=== PATIENT | male | born 1960 | race Caucasian/White ===

== ENCOUNTER 2022-03-17 21:42 | Emergency (ER) | payer OTHER ==
--- OUTSIDE RECORDS SUMMARY | 2022-03-17 21:45 | XMS REPORT | Continuity of Care Document ---
:[address] [facility] t Address [address] [place] [address] Care Team Providers Name Role Phone Kevin Sanders Jr. Primary Care Physician [phone] LESLIE WHITTINGTON Attending Clinician Unavailable PEGGY MADDEN Attending Clinician Unavailable JOCELINE MORATAYA Attending Clinician Unavailable LESLIE WHITTINGTON Attending Clinician Unavailable ROYER SELLERS Attending Clinician Unavailable LARS NAPOLES Attending Clinician Unavailable JONI GALEAS Attending Clinician Unavailable NIMESH GRAYSON Attending Clinician Unavailable LESLIE WHITTINGTON Admitting Clinician Unavailable LESLYE MELCHOR Admitting Clinician Unavailable Payers Payer Name Policy Type Policy Number Effective Date Expiration Date S bella [facility] [id number] 2021 00:00:00 CHOICE/CHOICE PLUS Problems Condition Condition Condition Status Onset Resolution Last Treating Co mments Source Name Details Category Date Date Treatment Clinician Date Malignant Malignant Disease Active [facility] neoplasm neoplasm 12-14 Health of brain of brain 00:00: 00 Seizure Seizure Disease Active [facility] disorder disorder 12-14 Health 00:00: 00 No known No known Disease [place] active active Health problems problems Allergies, Adverse Reactions, Alerts This patient has no known allergies or adverse reactions. Social History Social Habit Start Date Stop Date Quantity Comments Source History of tobacco Snuff User [facility] use Exposure to 2022-02-26 2022-03-08 Not sure [facility] SARS-CoV-2 (event) 00:00:00 08:59:00 Alcohol intake 2022-01-25 2022-01-25 Ex-drinker [facility] 00:00:00 00:00:00 (finding) Tobacco use and 2022-01-04 2022-01-04 User of smokeless [facility] exposure 00:00:00 00:00:00 tobacco Tobacco Comment 2022-01-04 2022-01-04 Started as a teen [facility] 00:00:00 00:00:00 Alcohol Comment 2022-01-04 2022-01-04 Will drink a glass [facility] 00:00:00 00:00:00 a wine i. Business situations, 2 times a Sex Assigned At [birth year] M [facility] 00:00:00 00:00:00 Smoking Status Start Date Stop Date Source Never smoked tobacco [facility] Medications Ordered Filled Start Stop Current Ordering Indication Dosage Frequency Signature Comments Components Source Medication Medication Date Date Medication? Clinician (SIG) Name Name dexamethaso 2021-03- Yes [id number] 4mg Q.5D Take 1 SD ne 05-09 tablet (4 Health (Decadron) 00:00: 05:59 mg total) 4 MG tablet 00 :00 by mouth in the morning and 1 tablet (4 mg total) in the evening. granisetron 2021-03- No [id number] 1{patch Place 1 UT (Sancuso) 05-09 } patch on Healt h 3.1 MG/24HR 00:00: 05:59 the skin 1 00 :00 (one) time for 1 dose. temozolomid 2021-03- No [id number] 280mg QD Take 2 UT e (Temodar) 05-01-14 capsules Hea lth 140 MG 00:00: 05:59 (280 mg chemo 00 :00 total) by capsule mouth 1 (one) time each day for 5 days. Total Dosage is 295mg on days 1 to 5 out of a 28 day cycle lacosamide 2021-03 Yes [id number] 100mg Q.5D Take 1 UT (Vimpat) 1-14 tablet Health 100 MG 00:00: (100 mg tablet 00 total) by mouth in the morning and 1 tablet (100 mg total) in the evening. clobetasol 2021-03 Yes [id number] Q.5D Apply U T (Olux) 0.05 0-27 topically Hea lth % topical 00:00: 2 (two) foam 00 times a day. clobetasol 2021-03 Yes [id number] Q.5D Apply U T (Olux) 0.05 0-27 topically Hea lth % topical 00:00: 2 (two) foam 00 times a day. dexamethaso 2021-03- No [id number] 4mg Q.5D Take 1 UT ne 0-10 12-13 tablet (4 Health (Decadron) 00:00: 00:00 mg total) 4 MG tablet 00 :00 by mouth in the morning and 1 tablet (4 mg total) in the evening. dexamethaso 2021-03- Yes [id number] 4mg Q.5D Take 1 UT ne 0-10 11-10 tablet (4 Health (Decadron) 00:00: 05:59 mg total) 4 MG tablet 00 :00 by mouth in the morning and 1 tablet (4 mg total) in the evening. dexamethaso 2021-03- Yes [id number] 4mg Q.5D Take 1 UT ne 0-10 11-10 tablet (4 Health (Decadron) 00:00: 05:59 mg total) 4 MG tablet 00 :00 by mouth in the morning and 1 tablet (4 mg total) in the evening. dexamethaso 2021-03- Yes [id number] 4mg Q.5D Take 1 UT ne 0-10 11-10 tablet (4 Health (Decadron) 00:00: 05:59 mg total) 4 MG tablet 00 :00 by mouth in the morning and 1 tablet (4 mg total) in the evening. dexamethaso 2021-03- Yes [id number] 4mg Q.5D Take 1 UT ne 0-10 11- tablet (4 Health (Decadron) 00:00: 05:59 mg total) 4 MG tablet 00 :00 by mouth in the morning and 1 tablet (4 mg total) in the evening. temozolomid 2021-03- Yes [id number] 140mg QD Take 1 UT e (Temodar) 0- capsule Heal th 140 MG 00:00: 05:59 (140 mg chemo 00 :00 total) by capsule mouth 1 (one) time each day. Total Dosage is 150mg daily for 42 days temozolomid 2021-03- Yes [id number] 10mg QD Take 2 UT e (Temodar) 0- capsules Hea lth 5 MG chemo 00:00: 05:59 (10 mg capsule 00 :00 total) by mouth 1 (one) time each day. Total Dosage is 150mg daily for 42 days temozolomid 2021-03- Yes [id number] 140mg QD Take 1 UT e (Temodar) 002-12 capsule Heal th 140 MG 00:00: 05:59 (140 mg chemo 00 :00 total) by capsule mouth 1 (one) time each day. Total Dosage is 150mg daily for 42 days temozolomid 2021-03- Yes [id number] 10mg QD Take 2 UT e (Temodar) 0- capsules Hea lth 5 MG chemo 00:00: 05:59 (10 mg capsule 00 :00 total) by mouth 1 (one) time each day. Total Dosage is 150mg daily for 42 days temozolomid 2021-03- Yes [id number] 140mg QD Take 1 UT e (Temodar) 002-12 capsule Heal th 140 MG 00:00: 05:59 (140 mg chemo 00 :00 total) by capsule mouth 1 (one) time each day. Total Dosage is 150mg daily for 42 days temozolomid 2021-03- Yes [id number] 10mg QD Take 2 UT e (Temodar) 0- capsules Hea lth 5 MG chemo 00:00: 05:59 (10 mg capsule 00 :00 total) by mouth 1 (one) time each day. Total Dosage is 150mg daily for 42 days temozolomid 2021-03- Yes [id number] 140mg QD Take 1 UT e (Temodar) 002-12 capsule Heal th 140 MG 00:00: 05:59 (140 mg chemo 00 :00 total) by capsule mouth 1 (one) time each day. Total Dosage is 150mg daily for 42 days temozolomid 2021-03- Yes [id number] 10mg QD Take 2 UT e (Temodar) 002-12 capsules Hea lth 5 MG chemo 00:00: 05:59 (10 mg capsule 00 :00 total) by mouth 1 (one) time each day. Total Dosage is 150mg daily for 42 days ondansetron 2021-03 Yes [id number] Take 1 tab UT (Zofran) 8 0-05 PO 60 Health MG tablet 00:00: minutes 00 before chemothera py then TID PRN Nausea ondansetron 2021-03 Yes [id number] Take 1 tab UT (Zofran) 8 0-05 PO 60 Health MG tablet 00:00: minutes 00 before chemothera py then TID PRN Nausea ondansetron 2021-03 Yes [id number] Take 1 tab UT (Zofran) 8 0-05 PO 60 Health MG tablet 00:00: minutes 00 before chemothera py then TID PRN Nausea ondansetron 2021-03 Yes [id number] Take 1 tab UT (Zofran) 8 0-05 PO 60 Health MG tablet 00:00: minutes 00 before chemothera py then TID PRN Nausea ondansetron 2021-03 Yes [id number] Take 1 tab UT (Zofran) 8 0-05 PO 60 Health MG tablet 00:00: minutes 00 before chemothera py then TID PRN Nausea phenytoin 0 Yes [id number] 100mg Q.[id number] Take 1 UT ER 12-16 [id number] capsule Health (Dilantin) 00:00: 3D (100 mg 100 MG 00 total) by capsule mouth in the morning and 1 capsule (100 mg total) at noon and 1 capsule (100 mg total) in the evening. Do all this for 3 days. Please note this a pre-surgic al load instructio ns below;11/26 09/15 Day 1 4 capsules po TID 12/21/21 Day 2 2 capsules po BID 12/22/21 Day 3 2 capsules po BID. phenytoin 2022-0 Yes [id number] 100mg Q.[id number] Take 1 UT ER 9- [id number] capsule Health (Dilantin) 00:00: 3D (100 mg 100 MG 00 total) by capsule mouth in the morning and 1 capsule (100 mg total) at noon and 1 capsule (100 mg total) in the evening. Do all this for 3 days. Please note this a pre-surgic al load instructio ns below;11/26 09/15 Day 1 4 capsules po TID 12/21/21 Day 2 2 capsules po BID 12/22/21 Day 3 2 capsules po BID. phenytoin 2022-0 Yes [id number] 100mg Q.[id number] Take 1 UT ER 9- [id number] capsule Health (Dilantin) 00:00: 3D (100 mg 100 MG 00 total) by capsule mouth in the morning and 1 capsule (100 mg total) at noon and 1 capsule (100 mg total) in the evening. Do all this for 3 days. Please note this a pre-surgic al load instructio ns below;11/26 09/15 Day 1 4 capsules po TID 12/21/21 Day 2 2 capsules po BID 12/22/21 Day 3 2 capsules po BID. phenytoin 2022-0 Yes [id number] 100mg Q.[id number] Take 1 UT ER 9- [id number] capsule Health (Dilantin) 00:00: 3D (100 mg 100 MG 00 total) by capsule mouth in the morning and 1 capsule (100 mg total) at noon and 1 capsule (100 mg total) in the evening. Do all this for 3 days. Please note this a pre-surgic al load instructio ns below;11/26 09/15 Day 1 4 capsules po TID 12/21/21 Day 2 2 capsules po BID 12/22/21 Day 3 2 capsules po BID. phenytoin 2022-0 Yes [id number] 100mg Q.[id number] Take 1 UT ER 9-22 [id number] capsule Health (Dilantin) 00:00: 3D (100 mg 100 MG 00 total) by capsule mouth in the morning and 1 capsule (100 mg total) at noon and 1 capsule (100 mg total) in the evening. Do all this for 3 days. Please note this a pre-surgic al load instructio ns below;11/26 09/15 Day 1 4 capsules po TID 12/21/21 Day 2 2 capsules po BID 12/22/21 Day 3 2 capsules po BID. phenytoin 2022-0 Yes [id number] 100mg Q.[id number] Take 1 UT ER - [id number] capsule Health (Dilantin) 00:00: 3D (100 mg 100 MG 00 total) by capsule mouth in the morning and 1 capsule (100 mg total) at noon and 1 capsule (100 mg total) in the evening. Do all this for 3 days. Please note this a pre-surgic al load instructio ns below;11/26 09/15 Day 1 4 capsules po TID 12/21/21 Day 2 2 capsules po BID 12/22/21 Day 3 2 capsules po BID. phenytoin 2022-0 Yes [id number] 100mg Q.[id number] Take 1 UT ER - [id number] capsule Health (Dilantin) 00:00: 3D (100 mg 100 MG 00 total) by capsule mouth in the morning and 1 capsule (100 mg total) at noon and 1 capsule (100 mg total) in the evening. Do all this for 3 days. Please note this a pre-surgic al load instructio ns below;11/26 09/15 Day 1 4 capsules po TID 12/21/21 Day 2 2 capsules po BID 12/22/21 Day 3 2 capsules po BID. levETIRAcet 2022-0 Yes 500mg Q.5D Take 500 U T am (Keppra) 9-13 mg by Health 500 MG 00:00: mouth in tablet 00 the morning and 500 mg before bedtime. levETIRAcet 2022-0 Yes 500mg Q.5D Take 500 U T am (Keppra) 9-13 mg by Health 500 MG 00:00: mouth in tablet 00 the morning and 500 mg before bedtime. levETIRAcet 2022-0 Yes 500mg Q.5D Take 500 U T am (Keppra) 9-13 mg by Health 500 MG 00:00: mouth in tablet 00 the morning and 500 mg before bedtime. levETIRAcet 2022-0 Yes 500mg Q.5D Take 500 U T am (Keppra) 9-13 mg by Health 500 MG 00:00: mouth in tablet 00 the morning and 500 mg before bedtime. levETIRAcet 2021-0 Yes 500mg Q.5D Take 500 U T am (Keppra) 9-13 mg by Health 500 MG 00:00: mouth in tablet 00 the morning and 500 mg before bedtime. levETIRAcet 2021-0 Yes 500mg Q.5D Take 500 U T am (Keppra) 9-13 mg by Health 500 MG 00:00: mouth in tablet 00 the morning and 500 mg before bedtime. levETIRAcet 2021-0 Yes 500mg Q.5D Take 500 U T am (Keppra) 9-13 mg by Health 500 MG 00:00: mouth in tablet 00 the morning and 500 mg before bedtime. levETIRAcet 2021-0 Yes 500mg Q.5D Take 500 U T am (Keppra) 9-13 mg by Health 500 MG 00:00: mouth in tablet 00 the morning and 500 mg before bedtime. levETIRAcet 2021-0 Yes 500mg Q.5D Take 500 U T am (Keppra) 9-13 mg by Health 500 MG 00:00: mouth in tablet 00 the morning and 500 mg before bedtime. Ozempic, 1 2021-0 Yes UT MG/DOSE, 4 9-10 Health MG/3ML 00:00: solution 00 pen-injecto r Ozempic, 1 2021-0 Yes UT MG/DOSE, 4 9-10 Health MG/3ML 00:00: solution 00 pen-injecto r Ozempic, 1 2021-0 Yes UT MG/DOSE, 4 9-10 Health MG/3ML 00:00: solution 00 pen-injecto r Ozempic, 1 2021-0 Yes UT MG/DOSE, 4 9-10 Health MG/3ML 00:00: solution 00 pen-injecto r Ozempic, 1 2021-0 Yes UT MG/DOSE, 4 9-10 Health MG/3ML 00:00: solution 00 pen-injecto r Ozempic, 1 2021-0 Yes UT MG/DOSE, 4 9-10 Health MG/3ML 00:00: solution 00 pen-injecto r Ozempic, 1 2021-0 Yes UT MG/DOSE, 4 9-10 Health MG/3ML 00:00: solution 00 pen-injecto r Ozempic, 1 2021-0 Yes UT MG/DOSE, 4 9-10 Health MG/3ML 00:00: solution 00 pen-injecto r Ozempic, 1 2021-0 Yes UT MG/DOSE, 4 9-10 Health MG/3ML 00:00: solution 00 pen-injecto r Toujeo Max 2021-0 Yes UT SoloStar 8-31 Health 300 UNIT/ML 00:00: solution 00 pen-injecto r Toujeo Max 2021-0 Yes UT SoloStar 8-31 Health 300 UNIT/ML 00:00: solution 00 pen-injecto r Toujeo Max 2021-0 Yes UT SoloStar 8-31 Health 300 UNIT/ML 00:00: solution 00 pen-injecto r Toujeo Max 2021-0 Yes UT SoloStar 8-31 Health 300 UNIT/ML 00:00: solution 00 pen-injecto r Toujeo Max 2021-0 Yes UT SoloStar 8-31 Health 300 UNIT/ML 00:00: solution 00 pen-injecto r Toujeo Max 2021-0 Yes UT SoloStar 8-31 Health 300 UNIT/ML 00:00: solution 00 pen-injecto r Toujeo Max 2021-0 Yes UT SoloStar 8-31 Health 300 UNIT/ML 00:00: solution 00 pen-injecto r Toujeo Max 2021-0 Yes UT SoloStar 8-31 Health 300 UNIT/ML 00:00: solution 00 pen-injecto r Toujeo Max 2021-0 Yes UT SoloStar 8-31 Health 300 UNIT/ML 00:00: solution 00 pen-injecto r lisinopril 2021-0 Yes UT 2.5 MG 8-29 Health tablet 00:00: 00 metFORMIN 2021-0 Yes UT XR 8-29 Health (Glucophage 00:00: -XR) 500 MG 00 24 hr tablet lisinopril 2021-0 Yes UT 2.5 MG 8-29 Health tablet 00:00: 00 metFORMIN 2-0 Yes UT XR 8-29 Health (Glucophage 00:00: -XR) 500 MG 24 hr tablet lisinopril 2021-0 Yes UT 2.5 MG 8 Health tablet 00:00: 00 metFORMIN 2022-0 Yes UT XR 8- Health (Glucophage 00:00: -XR) 500 MG 00 24 hr tablet lisinopril 2021-0 Yes UT 2.5 MG 8 Health tablet 00:00: 00 metFORMIN 2022-0 Yes UT XR 8- Health (Glucophage 00:00: -XR) 500 MG 24 hr tablet lisinopril 2021-0 Yes UT 2.5 MG 8 Health tablet 00:00: 00 metFORMIN 2022-0 Yes UT XR 8 Health (Glucophage 00:00: -XR) 500 MG 24 hr tablet lisinopril 2021-0 Yes UT 2.5 MG 8 Health tablet 00:00: 00 metFORMIN 2-0 Yes UT XR 8- Health (Glucophage 00:00: -XR) 500 MG 24 hr tablet lisinopril 2021-0 Yes UT 2.5 MG 11-22 Health tablet 00:00: 00 metFORMIN 2022-0 Yes UT XR 8 Health (Glucophage 00:00: -XR) 500 MG 24 hr tablet lisinopril 2021-0 Yes UT 2.5 MG 11-22 Health tablet 00:00: 00 metFORMIN 2022-0 Yes UT XR 8- Health (Glucophage 00:00: -XR) 500 MG 24 hr tablet lisinopril 2021-0 Yes UT 2.5 MG 8 Health tablet 00:00: 00 metFORMIN 2022-0 Yes UT XR 829 Health (Glucophage 00:00: -XR) 500 MG 00 24 hr tablet rosuvastati 2-0 Yes UT n (Crestor) 8-11 Health 40 MG 00:00: tablet 00 ezetimibe 2-0 Yes UT (Zetia) 10 8-11 Health MG tablet 00:00: 00 rosuvastati 2-0 Yes UT n (Crestor) 8-11 Health 40 MG 00:00: tablet 00 ezetimibe 2-0 Yes UT (Zetia) 10 8-11 Health MG tablet 00:00: 00 rosuvastati 2022-0 Yes UT n (Crestor) 8-11 Health 40 MG 00:00: tablet 00 ezetimibe 2-0 Yes UT (Zetia) 10 8-11 Health MG tablet 00:00: 00 rosuvastati 2-0 Yes UT n (Crestor) 8-11 Health 40 MG 00:00: tablet 00 ezetimibe 2-0 Yes UT (Zetia) 10 8-11 Health MG tablet 00:00: 00 rosuvastati 2-0 Yes UT n (Crestor) 8-11 Health 40 MG 00:00: tablet 00 rosuvastati 2-0 Yes UT n (Crestor) 8-11 Health 40 MG 00:00: tablet 00 ezetimibe 2-0 Yes UT (Zetia) 10 8-11 Health MG tablet 00:00: 00 ezetimibe 2-0 Yes UT (Zetia) 10 8-11 Health MG tablet 00:00: 00 rosuvastati 2-0 Yes UT n (Crestor) 8-11 Health 40 MG 00:00: tablet 00 ezetimibe 2021-0 Yes UT (Zetia) 10 8-11 Health MG tablet 00:00: 00 rosuvastati 2-0 Yes UT n (Crestor) 8-11 Health 40 MG 00:00: tablet 00 ezetimibe 2-0 Yes UT (Zetia) 10 8-11 Health MG tablet 00:00: 00 rosuvastati 2-0 Yes UT n (Crestor) 8-11 Health 40 MG 00:00: tablet 00 ezetimibe 2-0 Yes UT (Zetia) 10 8-11 Health MG tablet 00:00: 00 Vital Signs Vital Name Observation Time Observation Value Comments Source Systolic blood pressure 2022-03-08 15:35:00 120 mm[Hg] [facility] Diastolic blood pressure 2022-03-08 15:35:00 79 mm[Hg] [facility] Heart rate 2022-03-08 15:35:00 76 /min [facility] Body temperature 2022-03-08 15:35:00 36.89 [place]anda [facility] Respiratory rate 2022-03-08 15:35:00 14 /min [facility] Body weight 2022-03-08 15:35:00 [facility]93 [facility] 2022-03-08 15:35:00 27.37 kg/m2 [facility] Systolic blood pressure 2022-01-25 17:57:00 117 mm[Hg] [facility] Diastolic blood pressure 2022-01-25 17:57:00 76 mm[Hg] [facility] Heart rate 2022-01-25 17:57:00 88 /min [facility] Body height 2022-01-25 17:57:00 167.6 cm [facility] Body weight 2022-01-25 17:57:00 83.915 kg [facility] BMI 2022-01-25 17:57:00 29.86 kg/m2 [facility] Systolic blood pressure 2022-01-17 22:34:00 115 mm[Hg] [facility] Diastolic blood pressure 2022-01-17 22:34:00 76 mm[Hg] [facility] Heart rate 2022-01-17 22:34:00 99 /min [facility] Body temperature 2022-01-17 22:34:00 36.89 Lawanda [facility] Systolic blood pressure 2022-01-04 18:30:00 114 mm[Hg] [facility] Diastolic blood pressure 2022-01-04 18:30:00 74 mm[Hg] [facility] Heart rate 2022-01-04 18:30:00 87 /min [facility] Body temperature 2022-01-04 18:30:00 36.11 Lawanda [facility] Body height 2022-01-04 18:30:00 167.6 cm [facility] Body weight 2022-01-04 18:30:00 85.276 kg [facility] BMI 2022-01-04 18:30:00 30.34 kg/m2 [facility] Systolic blood pressure 2022-01-03 15:21:00 122 mm[Hg] [facility] Diastolic blood pressure 2022-01-03 15:21:00 83 mm[Hg] [facility] Heart rate 2022-01-03 15:21:00 85 /min [facility] Body height 2022-01-03 15:21:00 167.6 cm [facility] Body weight 2022-01-03 15:21:00 85.186 kg [facility] BMI 2022-01-03 15:21:00 30.31 kg/m2 [facility] Systolic blood pressure 2021-12-29 23:11:00 113 mm[Hg] [facility] Diastolic blood pressure 2021-12-29 23:11:00 75 mm[Hg] [facility] Heart rate 2021-12-29 23:11:00 102 /min [facility] Body height 2021-12-29 23:11:00 167.6 cm [facility] Body weight 2021-12-29 23:11:00 88.361 kg [facility] BMI 2021-12-29 23:11:00 31.44 kg/m2 [facility] Systolic blood pressure 2021-12-14 20:45:00 116 mm[Hg] [facility] Diastolic blood pressure 2021-12-14 20:45:00 74 mm[Hg] [facility] Heart rate 2021-12-14 20:45:00 105 /min [facility] Body temperature 2021-12-14 20:45:00 36.5 Lawanda [facility] Body height 2021-12-14 20:45:00 167.6 cm [facility] Body weight 2021-12-14 20:45:00 103.874 kg [facility] BMI 2021-12-14 20:45:00 36.96 kg/m2 [facility] Systolic blood pressure 2021-12-09 16:19:00 136 mm[Hg] [facility] Diastolic blood pressure 2021-12-09 16:19:00 90 mm[Hg] [facility] Heart rate 2021-12-09 16:19:00 112 /min [facility] Body height 2021-12-09 16:19:00 167.6 cm [facility] Body weight 2021-12-09 16:19:00 104.146 kg [facility] BMI 2021-12-09 16:19:00 37.06 kg/m2 [facility] Procedures This patient has no known procedures. Encounters Start End Encounter Admission Attending Care Care Encounter Source Date/Time Date/Time Type Type Clinicians Facility Department ID 2022-03-[address] [facility] [id number] [facility] 15:03:19 [id number] [facility] 2022-03-[address] [facility] [id number] [facility] 18:29:11 [id number] [facility] 2022-03-[address] [facility] [id number] [facility] 09:02:11 [id number] [facility] 2022-02-[address] [facility] [id number] [facility] 10:41:01 [id number] [facility] 2022-02-[address] [facility] [id number] UT 08:22:09 [id number] [facility] 2022-02-[address] [facility] [id number] UT 17:47:49 [id number] [facility] 2022-02-[address] [facility] [id number] UT 08:57:16 [id number] [facility] 2022-02-[address] [facility] [id number] UT 12:12:00 [id number] [facility] 2022-02-[address] [facility] [id number] UT 09:00:44 [id number] [facility] 2022-01-[address] [facility] [id number] UT 14:03:44 [id number] [facility] 2022-01-[address] [facility] [id number] UT 16:00:33 [id number] [facility] 2021-12-16 Inpatient NLESY, [id number] [facility] H 18:42:05 LESLIE 2022-03-29 2022-03-[address] [facility] [id number] UT 09:30:00 09:30:00 PEGGY [facility] 2022-03-08 2022-03-08 Office RYAN Madden 6400 [id number] UT 10:30:00 11:00:[address] [id number] [facility] [id number] 2022-02-07 2022-02-[address] [facility] [id number] UT 14:30:00 14:30:00 PEGGY [facility] 2022-02-03 2022-02-[address] [facility] [id number] UT 14:00:00 14:00:00 [facility] 2022-01-25 2022-01-25 Office RYAN [place] 6400 [id number] UT 12:45:00 12:45:[address] [id number] Health [id number] 2022-01-17 2022-01-17 Office CHANO [facility] 6400 [id number] UT 13:00:00 13:00:[address] [id number] Health [id number] 2022-01-17 2022-01-17 Outpatient CHANO, [facility] [id number] UT 09:30:00 09:30:00 PEGGY velazquez 2022-01-10 2022-01-10 Outpatient SELLERS, [facility] [id number] UT 11:00:00 11:00:00 [facility] 2022-01-05 2022-01-05 Outpatient YESIKA, [facility] [id number] [facility] 12:55:00 12:55:00 LARS 2022-01-04 2022-01-04 Office RYAN GALEAS 6400 [id number] UT 13:30:00 13:30:[address] [id number] Health [id number] 2022-01-03 2022-01-03 Office [facility]ANO [facility] 6400 [id number] UT 10:00:00 10:00:[address] [id number] Health [id number] 2021-12-29 2021-12-29 Office Chano [facility] 6400 [id number] UT 13:00:00 13:30:[address] [id number] Health [id number] 1 2021-12-20 2021-12-20 Outpatient NELSY [id number] [facility] 12:43:00 23:59:00 LESLIE 2021-12-20 2021-12-20 Office RYAN MORATAYA 6400 [id number] UT 08:30:00 08:30:[address] [id number] Health [id number] 2021-12-14 2021-12-14 Office NELSY [facility] 6400 [id number] UT 15:00:00 15:00:[address] [id number] Health [id number] 2021-12-09 2021-12-09 Consult CHANO [facility] 6400 [id number] UT 10:30:00 10:30:[address] [id number] Health [id number] 2021-12-06 2021-12-07 Inpatient [facility] 15:25:00 13:09:00 NIMESH lindsey Results This patient has no known results.
[2022-03-17 23:10] LABS: Absolute Lymphocytes (CBC) 0.6 K/uL (0.7-4.9); Hematocrit 48.1 % (39.6-49.0); Lymphocytes % 3.1 % (15.3-44.8); MCV 82.9 fL (80-100); MPV 7.8 fL (7.6-11.3)
[2022-03-17] MEDS ORDERED: ONDANSETRON 4 MG/2 ML VIAL ONE (23:17)
[2022-03-17] MEDS ORDERED: Ringers Lactate 1,000 ML IV ONE (23:17)
[2022-03-17] MEDS ORDERED: PROMETHAZINE INJ 25 MG/ML AMP ONE (23:41)
[2022-03-17 23:45] LABS: Albumin 4.1 g/dL (3.4-5.0); Bilirubin Total 0.6 mg/dL (0.2-1.0); Potassium 4.3 mmol/L (3.5-5.1); Troponin High Sensitivity 8.8 pg/mL (<58.9)
[2022-03-17 23:52] LABS: Urine Blood 2+ (Negative); Urine Glucose Negative (Negative); Urine Protein 3+ (Negative); Urine Specific Gravity 1.025 (1.005-1.030); Urine pH 5.5 (5.0-7.0)
[2022-03-18 00:43] LABS: Urine Bacteria <20 /HPF (<20); Urine Granular Casts 0-5 /LPF (None Seen); Urine Mucus Slight /HPF (None Seen)
--- NOTE | 2022-03-18 00:46 | ER ---
Nurse's Notes [facility] Name: Hugh Rivera Age: 61 yrs Sex: Male : 1960 Arrival Date: 03/17/2022 Time: 21:44 Bed 20 Private MD: Diagnosis: Acute kidney injury;Acute pancreatitis;Constipation;Nausea and vomiting Presentation: 03/17 21:51 Chief complaint: Constipation, nausea, and pain in abdomen and rectum, unrelieved by laxative suppositories. Coronavirus screen: At this time, the client does not indicate any symptoms associated with coronavirus-19. Ebola Screen: No symptoms or risks identified at this time. Initial Sepsis Screen: Does the patient meet any 2 criteria? No. Patient's initial sepsis screen is negative. Does the patient have a suspected source of infection? No. Patient's initial sepsis screen is negative. Risk Assessment: Do you want to hurt yourself or someone else? Patient reports no desire to harm self or others. Onset of symptoms was March 07, 2022. 21:51 Method Of Arrival: Ambulatory hb 21:51 Acuity: JOSHUA 3 hb Historical: - Allergies: 21:53 No Known Allergies; hb - PMHx: 21:53 Glioblastoma; hb - Immunization history:: Adult Immunizations up to date. - Social history:: Smoking status: unknown. Screenin:54 [facility] ED Fall Risk Assessment (Adult) History of falling in the last 3 months, kd3 including since admission No falls in past 3 months (0 pts) Confusion or Disorientation No (0 pts) Intoxicated or Sedated No (0 pts) Impaired Gait No (0 pts) Mobility Assist Device Used No (0 pt) Altered Elimination No (0 pt) Score/Fall Risk Level 0 - 2 = Low Risk Oriented to surroundings. Abuse screen: Denies threats or abuse. Denies injuries from another. Nutritional screening: No deficits noted. Tuberculosis screening: No symptoms or risk factors identified. Assessment: 23:53 General: Appears uncomfortable, Behavior is calm, cooperative. Pain: Complains of pain kd3 in abdomen. Neuro: Level of Consciousness is awake, alert, obeys commands, Oriented to person, place, time, situation. Cardiovascular: Patient's skin is warm and dry. Respiratory: Airway is patent Trachea midline Respiratory effort is even, unlabored, Respiratory pattern is regular, symmetrical. GI: Pt is actively vomiting Bowel sounds present X 4 quads. Abd is soft. 03/18 02:20 Reassessment: Patient and/or family updated on plan of care and expected duration. Pain kd3 level reassessed. Patient is alert, oriented x 3, equal unlabored respirations, skin warm/dry/pink. Patient states feeling better. Patient states symptoms have improved. 02:33 General: discharge pending completion of soap suds enema . as6 04:03 General: pt report bowel movement . as6 Vital Signs: 03/17 21:51 BP 168 / 98; Pulse 101; Resp 16; Temp 99.3(O); Pulse Ox 100% on R/A; Weight 74.84 kg; hb Height 5 ft. 6 in. (167.64 cm); Pain 9/10; 23:53 BP 133 / 87; Pulse 93; Resp 17; Pulse Ox 100% on R/A; kd3 03/18 00:18 Temp 98.2(TE); kd3 01:31 BP 112 / 65; Pulse 90; Resp 18 S; Pulse Ox 99% on R/A; as6 02:18 BP 123 / 78; Pulse 92; Resp 16; Pulse Ox 98% on R/A; kd3 03:57 BP 101 / 64; Pulse 94; Resp 18 S; Pulse Ox 96% on R/A; as6 03/17 21:51 Body Mass Index 26.63 (74.84 kg, 167.64 cm) hb ED Course: 03/17 21:44 Patient arrived in ED. jj6 21:48 Renee Ramos MD is Attending Physician. sd2 21:53 Triage completed. hb 21:54 Arm band placed on. hb 22:14 Jesse Qureshi, JEOAVNNY is Primary Nurse. as6 23:01 Inserted saline lock: 20 gauge in left antecubital area, using aseptic technique. Blood zm collected. 23:02 Lipase Sent. zm 23:02 Troponin High Sensitivity Sent. zm 23:02 CMP Sent. zm 23:02 CBC with Diff Sent. zm 23:54 No provider procedures requiring assistance completed. kd3 03/18 00:11 Abdomen In Process Unspecified. EDMS 00:45 Augustine Small MD is Hospitalizing Provider. sd2 01:18 initiated a transfer with Sinyd from [facility]. mw2 01:29 [facility] denied due to capacity. mw2 01:34 re initiated a transfer with Seda Antoine from [facility]. mw2 02:34 Placed in gown. Bed in low position. Call light in reach. Side rails up X 1. as6 04:03 IV discontinued, intact, bleeding controlled, No redness/swelling at site. Pressure as6 dressing applied. Administered Medications: 03/17 23:20 Drug: Lactated Ringers Solution 1000 ml Route: IV; Rate: bolus; Site: left antecubital; kd3 03/18 02:20 Follow up: IV Status: Completed infusion kd3 02:20 Follow up: IV Intake: 1000ml kd3 03/17 23:20 Drug: Zofran (Ondansetron) 4 mg Route: IVP; Site: left antecubital; kd3 03/18 02:19 Follow up: Response: No adverse reaction; Nausea is decreased kd3 03/17 23:55 Drug: Phenergan (promethazine) 12.5 mg Route: IVP; Site: left antecubital; kd3 03/18 02:19 Follow up: Response: No adverse reaction; Nausea is decreased kd3 Medication: 03/17 23:55 VIS not applicable for this client. kd3 Intake: 03/18 02:20 IV: 1000ml; Total: 1000ml. kd3 Outcome: 00:45 Decision to Hospitalize by Provider. sd2 02:01 Discharge ordered by . sd2 04:03 Discharged to home via wheelchair, with family. as6 04:03 Condition: stable 04:03 Discharge instructions given to patient, family, Instructed on discharge instructions, follow up and referral plans. Demonstrated understanding of instructions, follow-up care. 04:04 Patient left the ED. as6 Signatures: Dispatcher [employer] EDMS Jennifer Rivera, Marvin Casas RN mw2 Jennifer Ibarraj6 Jesse Qureshi RN RN as6 Serene Zimmerman RN RN kd3 Rachna Virk Stephanie, MD MD sd2
--- NOTE | 2022-03-18 00:46 | EDPHYS ---
Physician Documentation [facility] Name: Hugh Rivera Age: 61 yrs Sex: Male : 1960 Arrival Date: 03/17/2022 Time: 21:44 Bed 20 Private MD: ED Physician Renee Ramos HPI: 03/17 22:16 This 61 yrs old Male presents to ER via Ambulatory with complaints of Constipation. sd2 22:16 61 yo M with a history of GBM currently undergoing chemotherapy with last treatment on sd2 02/28 presents with CC of constipation x 12 days. Reports only very small amounts of hard stool despite home enemas. Not on pain medications. Has not noticed significant abdominal pain or distention. Did have episode of nausea and vomiting for first time upon arrival to ER. Denies urinary complaints. . Historical: - Allergies: 21:53 No Known Allergies; hb - PMHx: 21:53 Glioblastoma; hb - Immunization history:: Adult Immunizations up to date. - Social history:: Smoking status: unknown. ROS: 22:16 Constitutional: Negative for fever, chills, and weight loss, Eyes: Negative for injury, sd2 pain, redness, and discharge, Cardiovascular: Negative for chest pain, palpitations, and edema, Respiratory: Negative for shortness of breath, cough, wheezing. 22:16 : Negative for dysuria, frequency or hematuria. MS/Extremity: Negative for injury and deformity, Skin: Negative for injury, rash, and discoloration. 22:16 Abdomen/GI: Positive for nausea and vomiting, constipation, Negative for abdominal pain, diarrhea, abdominal distension. Exam: 22:16 Constitutional: This is a well developed, well nourished patient who is awake, alert, sd2 and in no acute distress. Head/Face: Normocephalic, atraumatic. Eyes: EOMI, normal conjunctiva bilaterally Chest/axilla: Normal chest wall appearance and motion. Nontender with no deformity. Cardiovascular: Regular rate and rhythm with a normal S1 and S2. No gallops, murmurs, or rubs. 2+ distal pulses. Respiratory: Lungs have equal breath sounds bilaterally, clear to auscultation and percussion. No rales, rhonchi or wheezes noted. No increased work of breathing, no retractions or nasal flaring. Abdomen/GI: Soft, non-tender, with normal bowel sounds. No guarding or rebound. No evidence of tenderness throughout. Small reducible umbilical hernia present. Skin: Warm, dry with normal turgor. Normal color with no rashes, no lesions, and no evidence of cellulitis. MS/ Extremity: Pulses equal, no cyanosis. Neurovascular intact. Full, normal range of motion. Ambulatory without difficulty. Psych: Awake, alert, with orientation to person, place and time. Behavior, mood, and affect are within normal limits. 03/18 00:04 ECG was reviewed by the Attending Physician. NSR, rate 96, no STEMI criteria sd2 Vital Signs: 03/17 21:51 BP 168 / 98; Pulse 101; Resp 16; Temp 99.3(O); Pulse Ox 100% on R/A; Weight 74.84 kg; hb Height 5 ft. 6 in. (167.64 cm); Pain 9/10; 23:53 BP 133 / 87; Pulse 93; Resp 17; Pulse Ox 100% on R/A; kd3 03/18 00:18 Temp 98.2(TE); kd3 01:31 BP 112 / 65; Pulse 90; Resp 18 S; Pulse Ox 99% on R/A; as6 02:18 BP 123 / 78; Pulse 92; Resp 16; Pulse Ox 98% on R/A; kd3 03:57 BP 101 / 64; Pulse 94; Resp 18 S; Pulse Ox 96% on R/A; as6 03/17 21:51 Body Mass Index 26.63 (74.84 kg, 167.64 cm) hb MDM: 03/17 22:16 Differential Diagnosis Gastritis, cholecystitis, pancreatitis, SBO, diverticulitis, sd2 kidney stone, appendicitis, UTI, dehydration, electrolyte abnormality among others. Data reviewed: vital signs, nurses notes. 22:19 Patient medically screened. sd2 03/18 00:38 Data reviewed: lab test result(s), EKG, radiologic studies. Counseling: I had a sd2 detailed discussion with the patient and/or guardian regarding: the historical points, exam findings, and any diagnostic results supporting the discharge/admit diagnosis, lab results, radiology results, the need for further work-up and treatment in the hospital. ED course: Labs and imaging reviewed. WBC elevated but pt on steroids and has chronically elevated WBC count. New onset acute renal failure noted as patient reports no prior history of kidney dysfunction with last labs drawn last week. Lipase elevated with no signs of pancreatitis on CT and no elevated LFTs. CTAP otherwise unremarkable. IVFs and antiemetics given with improvement of patient's vomiting. Will give enema and admit for further management. Offered transfer to [facility] as this is where patient receives his oncologic treatments but pt declines and would prefer management at our facility unless a transfer is necessary. . 01:54 ED course: More information revealed that patient is actually currently in a clinical sd2 trial with Dr. Norris at [facility] including radiofrequency therapy and his current chemotherapy regimen. His pancreatitis could be a possible complication of his clinical trial as well. I believe the best place for the patient to be is where his neuro-oncologist is located and at the site of his clinical trial. We also do not have GI instructional support assistant to help manage his symptoms. Discussed this with patient and after discussion of risks of doing so including worsening of condition and severe disability, pt would like to proceed with an informed refusal of further treatment at our facility and admission as well as transfer to other facilities and will drive directly to [facility] ER upon discharge for further treatment of his symptoms there and consultation with his physicians. He was provided with all of his laboratory results, CT scan results and disc of his CT scan as well. He verbalizes understanding of strict return precautions and that he may change his mind and return at any time for further evaluation. . 03/17 21:56 Order name: CBC with Diff; Complete Time: 23:21 sd2 03/17 21:56 Order name: CMP; Complete Time: 23:46 sd2 03/17 21:56 Order name: Lipase; Complete Time: 23:46 sd2 03/17 21:56 Order name: Troponin High Sensitivity; Complete Time: 23:46 sd2 03/17 21:56 Order name: Urine Microscopic Only; Complete Time: 00:46 sd2 03/17 23:53 Order name: Urine Dipstick-Ancillary; Complete Time: 00:04 EDMS 03/17 21:56 Order name: EKG - Nurse/Tech; Complete Time: 23:36 sd2 03/18 00:02 Order name: Abdomen EDMS 03/18 00:48 Order name: Urine Culture EDCA 03/18 01:14 Order name: SARS RAPID; Complete Time: 02:03 kd3 03/17 21:56 Order name: Urine Dipstick-Ancillary (obtain specimen); Complete Time: 23:55 sd2 03/18 00:38 Order name: Misc. Order: Soap suds enema; Complete Time: 01:26 sd2 Administered Medications: 03/17 23:20 Drug: Lactated Ringers Solution 1000 ml Route: IV; Rate: bolus; Site: left antecubital; kd3 03/18 02:20 Follow up: IV Status: Completed infusion kd3 02:20 Follow up: IV Intake: 1000ml kd3 03/17 23:20 Drug: Zofran (Ondansetron) 4 mg Route: IVP; Site: left antecubital; kd3 03/18 02:19 Follow up: Response: No adverse reaction; Nausea is decreased kd3 03/17 23:55 Drug: Phenergan (promethazine) 12.5 mg Route: IVP; Site: left antecubital; kd3 03/18 02:19 Follow up: Response: No adverse reaction; Nausea is decreased kd3 Disposition Summary: 03/18/22 02:01 Discharge Ordered Location: Other(03/18/22 02:01) sd2 Problem: new(03/18/22 02:01) sd2 Symptoms: have improved(03/18/22 02:01) sd2 Condition: Stable(03/18/22 02:01) sd2 Diagnosis - Acute kidney injury sd2 - Acute pancreatitis sd2 - Constipation sd2 - Nausea and vomiting sd2 Followup: sd2 - With: Private Physician - When: Upon discharge from the Emergency Department - Reason: Recheck today's complaints, Continuance of care, Re-evaluation by your physician Discharge Instructions: - Discharge Summary Sheet sd2 - Acute Pancreatitis sd2 - Acute Kidney Injury, Adult sd2 Forms: - Medication Reconciliation Form sd2 - Thank You Letter sd2 - Antibiotic Education sd2 - Prescription Opioid Use sd2 Signatures: Dispatcher [employer] Cristy Aguilar, RN JEOVANNY Jennifer Rivera RN RN Serene Amaral RN RN kd3 Renee Ramos MD MD sd2 Corrections: (The following items were deleted from the chart) 00:02 03/17 21:57 Abdomen Pelvis W Con+CT.RAD.BRZ ordered. EDMS EDMS 03/18 01:40 00:45 Telemetry/MedSurg (observation) sd2 cg 01:40 00:45 sd2 cg 01:59 00:45 Observation sd2 sd2 01:59 00:45 Augustine Small sd2 sd2 01:59 00:45 Stable sd2 sd2 01:59 00:45 new sd2 sd2 01:59 00:45 are unchanged sd2 sd2 01:59 00:45 Standard sd2 sd2 01:59 00:45 Constipation sd2 sd2 01:59 00:45 Vomiting sd2 sd2 01:59 00:45 Acute kidney injury sd2 sd2 01:59 00:45 Elevated Lipase sd2 sd2 01:59 01:40 [facility] ER HOLD cg sd2 01:59 01:40 ERHOLD- cg sd2
[2022-03-18 01:38] LABS: SARS-CoV-2 Antigen Rapid Res Negative (Negative)
[2022-03-18 04:29] VITALS: TEMP 98.2
[2022-03-18 04:32] VITALS: BP 101/64; O2SAT 96
--- NOTE | 2022-03-18 11:12 | RAD REPORT ---
EXAM DESCRIPTION: CT - Abdomen Pelvis Wo Contrast - 03/18/2022 6:33 am CLINICAL HISTORY: Constipation, nausea, abdominal pain COMPARISON: None. TECHNIQUE: CT ABDOMEN PELVIS WITHOUT IV CONTRAST on 03/17/2022 9:56 PM JOCKEY ROOM CUSTODIAN This exam was performed according to our departmental dose-optimization program, which includes autom ated exposure control, adjustment of the mA and/or kV according to patient size and/or use of iterati ve reconstruction technique. FINDINGS: Lower lungs are clear. Abdomen: The liver is normal in appearance. There is no biliary dilatation. Gallbladder is poorly dis tended. Stomach is fluid-filled and mildly distended. There is a small hiatal hernia. The pancreas an d spleen are normal in appearance. The adrenal glands and kidneys are unremarkable. Abdominal aorta is moderately calcified without aneurysm. There is no free air. There is no retroperi toneal adenopathy. There is a small fat-containing umbilical hernia. Pelvis: There is no bowel obstruction. Urinary bladder is unremarkable. There is no free fluid. There is a small fat-containing left inguinal hernia. Hysterectomy was performed. Appendix is normal. Skeleton: There are no acute osseous findings. No suspicious bony lesions. IMPRESSION: No definite acute process. Hiatal hernia. Electronically signed by: Viktor Schmidt MD 03/18/2022 12:22 AM JOCKEY ROOM CUSTODIAN Due to temporary technical issues with the PACS/Fluency reporting system, reports are being signed by the in house radiologists without review as a courtesy to insure prompt reporting. The interpreting radiologist is fully responsible for the content of the report.
--- NOTE | 2022-03-19 17:26 | EKG ---
Test Date: 2022-03-17 Test Time: 23:38:15 Assistant Child Care Teacher: MEASUREMENT RESULTS: Intervals: Rate: 96 WI: 142 QRSD: 84 QT: 326 QTc: 411 [place]: P: 66 WI: 142 QRS: 62 T: 20 INTERPRETIVE STATEMENTS: Normal sinus rhythm Normal ECG No previous ECG available for comparison Electronically Signed On 03-19-22 17:24:29 SOCIAL SERVICE DIRECTOR by Bobby Rodriguez
== END 2022-03-18 04:04 | disposition home or self-care (01) ==
LOC: ER 21:42
DX: N17.9 Acute kidney failure, unspecified (principal); K85.90 Acute pancreatitis without necrosis or infection, unspecified; K59.00 Constipation, unspecified; Z20.822 Contact with and (suspected) exposure to COVID-19
CPT/HCPCS: 96361; 93005; 87088; 85025; 87086; 36415; 84484; 83690; 80053; 74176; 96375; 96374; 99284; 87811; J2550; J7120; J2405; 81003; 81015